=== PATIENT | female | born 2000 | race African-American/Black ===

== ENCOUNTER 2020-12-23 20:29 | Emergency (ER) | payer MEDICAID, OTHER ==
[~2020-12-23] VITALS: Ht 142.2 cm; Wt 40.8 kg
[2020-12-23 20:55] VITALS: BP 113/79
[2020-12-23] MEDS ORDERED: CALCIUM CARB 500 MG CHEW TAB PO ONE (22:15)
== END 2020-12-24 00:28 | disposition home or self-care (01) ==
LOC: ER 20:32
DX: R50.9 Fever, unspecified (principal); Z20.822 Contact with and (suspected) exposure to COVID-19
CPT/HCPCS: 36415; 71045; 81002; 81025; 87426; 99284; C9803; U0003